=== PATIENT | male | born 1950 | race Caucasian/White ===

== ENCOUNTER 2016-09-27 14:02 | Emergency (ER) | payer MEDICARE, MEDICAID ==
[2016-09-27] MEDS ORDERED: NS 0.9% 1000 ML* 1,000 ML IV ONE (14:51)
--- NOTE | 2016-09-27 15:01 | RAD ---
Indication: Weakness. Single frontal view of the chest performed at 1440 hours was reviewed. No prior study is available for comparison. No mediastinal shift is noted. Heart is of normal size and configuration. Lung burton appear clear. IMPRESSION: NO ACTIVE CARDIOPULMONARY DISEASE IS NOTED.
[2016-09-27 15:11] LABS: Hematocrit 43 % (42-52); Hemoglobin 14.7 g/dl (14.0-18.0); Mean Corpuscular HGB Conc 34 g/dl (31-36); Mean Corpuscular Hemoglobin 31 pg (27-31); Mean Corpuscular Volume 89 fL (80-94); Mean Platelet Volume 7 um3 (7.4-10.4); Red Blood Count 4.83 10^6/ul (4.0-5.4); Red Cell Distribution Width 13 % (10.5-15); White Blood Count 6.1 10^3/ul (3.5-10.8)
[2016-09-27 15:24] LABS: Potassium 4.2 mmol/L (3.5-5.0)
[2016-09-27 15:25] LABS: BUN/Creatinine Ratio 10.8 (8-20); EGFR African American 70.6 (>60); EGFR Non-African American 54.9 (>60)
[2016-09-27 16:08] LABS: TSH (Thyroid Stimulating Horm) 1.4 mcIU/mL (0.34-5.60)
[2016-09-27 17:50] LABS: Albumin 4.1 g/dL (3.2-5.2); Calcium 9.1 mg/dL (8.6-10.3); Globulin 2.8 g/dL (2-4); Magnesium 1.8 mg/dL (1.9-2.7); Total Protein 6.9 g/dL (6.4-8.9)
[2016-09-27] MEDS ORDERED: Magnesium Oxide TAB* 400 MG PO ONE (18:02)
--- NOTE | 2016-09-27 18:04 | ED ---
Shell Orellana Edward, scribed for Gayla Ziegler MD on 09/27/16 at 1440 . Dizziness - HPI Summary HPI Summary: 66 y/o male presents to ED s/p syncopal episode earlier today. The patient was walking up a hill with a cart when the episode happened. The patient was dizzy and diaphoretic right before the episode. Patient feels much better in the ED. Denies CP. PMHx HTN. No previous NE's. FHx no HTN. - History Of Current Complaint Chief Complaint: EDDizziness Stated Complaint: DIZZINESS Time Seen by Provider: 09/27/16 14:36 Hx Obtained From: Patient Onset/Duration: Resolved Timing: Frequency Of Episodes - 1 syncopal episode Character: Dizzy - and diaphoretic Associated Signs And Symptoms: Positive: Diaphoresis, Other: - dizziness, syncope - Allergies/Home Medications Allergies/Adverse Reactions: Allergies Allergy/AdvReac Type Severity Reaction Status Date / Time No Known Allergies Allergy Verified 09/27/16 14:31 PMH/Surg Hx/FS Hx/Imm Hx Previously Healthy: No Cardiovascular History: Reports: Hx Hypertension Denies: Hx Myocardial Infarction Infectious Disease History: No Infectious Disease History: Denies: Traveled Outside the [place] in Last 30 Days - Family History Known Family History: Negative: Hypertension - Social History Occupation: Disabled Lives: Alone Alcohol Use: None Hx Substance Use: No Substance Use Type: Reports: None Hx Tobacco Use: Yes Smoking Status (MU): Former Smoker Review of Systems Positive: Skin Diaphoresis Eyes: Negative ENT: Negative Cardiovascular: Negative Negative: Chest Pain Respiratory: Negative Gastrointestinal: Negative Genitourinary: Negative Musculoskeletal: Negative Skin: Negative Neurological: Other - Dizziness Positive: Syncope - 1x Psychological: Normal All Other Systems Reviewed And Are Negative: Yes Physical Exam Triage Information Reviewed: Yes Vital Signs On Initial Exam: Initial Vitals Temp Pulse Resp BP Pulse Ox 98 F 67 14 122/67 99 09/27/16 14:22 09/27/16 14:22 09/27/16 14:22 09/27/16 14:22 09/27/16 14:22 Vital Signs Reviewed: Yes Appearance: Positive: Well-Appearing, No Pain Distress Skin: Positive: Warm, Skin Color Reflects Adequate Perfusion, Dry Eyes: Positive: EOMI, PEYTON ENT: Positive: Pharynx normal, TMs normal Neck: Positive: Supple, Nontender Respiratory/Lung Sounds: Positive: Clear to Auscultation, Breath Sounds Present. Negative: Rales, Rhonchi, Wheezes Cardiovascular: Positive: RRR, Other - No gallop. Negative: Murmur, Rub Abdomen Description: Positive: Nontender, Soft, Other: - No rebound. Negative: Distended, Guarding Bowel Sounds: Positive: Present Musculoskeletal: Positive: Strength/ROM Intact. Negative: Edema Left, Edema Right Neurological: Positive: Sensory/Motor Intact, Alert, Oriented to Person Place, Time, CN Intact II-III Psychiatric: Positive: Affect/Mood Appropriate - [place] Coma Scale Coma Scale Total: 15 Diagnostics - Vital Signs Vital Signs Temp Pulse Resp BP Pulse Ox 09/27/16 14:22 98 F 67 14 122/67 99 - Laboratory Lab Results: Lab Results 09/27/16 09/27/16 Range/Units 15:04 15:04 WBC 6.1 (3.5-10.8) 10^3/ul RBC 4.83 (4.0-5.4) 10^6/ul Hgb 14.7 (14.0-18.0) g/dl Hct 43 (42-52) % MCV 89 (80-94) fL MCH 31 (27-31) pg MCHC 34 (31-36) g/dl RDW 13 (10.5-15) % Plt Count 170 (150-450) 10^3/ul MPV 7 L (7.4-10.4) um3 Neut % (Auto) 74.7 (38-83) % Lymph % (Auto) 16.6 L (25-47) % Lea % (Auto) 6.2 (1-9) % Eos % (Auto) 2.1 (0-6) % Baso % (Auto) 0.4 (0-2) % Absolute Neuts (auto) 4.6 (1.5-7.7) 10^3/ul Absolute Lymphs (auto) 1.0 (1.0-4.8) 10^3/ul Absolute Monos (auto) 0.4 (0-0.8) 10^3/ul Absolute Eos (auto) 0.1 (0-0.6) 10^3/ul Absolute Basos (auto) 0 (0-0.2) 10^3/ul Absolute Nucleated RBC 0 10^3/ul Nucleated RBC % 0 Sodium 142 (133-145) mmol/L Potassium 4.2 (3.5-5.0) mmol/L Chloride 104 (101-111) mmol/L Carbon Dioxide 28 (22-32) mmol/L Anion Gap 10 (2-11) mmol/L BUN 14 (6-24) mg/dL Creatinine 1.30 H (0.67-1.17) mg/dL Est GFR ( Amer) 70.6 (>60) Est GFR (Non-Af Amer) 54.9 (>60) BUN/Creatinine Ratio 10.8 (8-20) Glucose 97 (70-100) mg/dL Calcium 9.1 (8.6-10.3) mg/dL Magnesium 1.8 L (1.9-2.7) mg/dL Total Bilirubin 1.00 (0.2-1.0) mg/dL AST 22 (13-39) U/L ALT 20 (7-52) U/L Alkaline Phosphatase 46 (34-104) U/L Troponin I 0.00 (<0.04) ng/mL Total Protein 6.9 (6.4-8.9) g/dL Albumin 4.1 (3.2-5.2) g/dL Globulin 2.8 (2-4) g/dL Albumin/Globulin Ratio 1.5 (1-3) TSH 1.40 (0.34-5.60) mcIU/mL Result Diagrams: 09/27/16 15:04 09/27/16 15:04 Lab Statement: Any lab studies that have been ordered have been reviewed, and results considered in the medical decision making process. - Radiology CXR Xray Interpretation: No Acute Changes - NO ACTIVE CARDIOPULMONARY DISEASE IS NOTED. Radiology Interpretation Completed By: Radiologist - EKG 1 Cardiac Rate: NL EKG Rhythm: Sinus Rhythm - @ [address] Segment: Normal EKG Interpretation: 14:57 Dizzy Course/Dx - Course Course Of Treatment: 66 yo male with syncope after walking in the heat feels much better here no head injury, labs essentially normal ok to go home - Diagnoses Provider Diagnoses: Syncope Discharge - Discharge Plan Condition: Stable Disposition: HOME The documentation as recorded by the Shell tavares Edward accurately reflects the service I personally performed and the decisions made by , Gayla Ziegler MD.
[2016-09-27 18:16] VITALS: BP 142/73
== END 2016-09-27 18:42 | disposition home or self-care (01) ==
LOC: ED 14:02
DX: R55 Syncope and collapse (principal); R42 Dizziness and giddiness; Z87.891 Personal history of nicotine dependence
CPT/HCPCS: 36415; 71010; 80053; 83605; 83735; 84443; 84484; 85025; 93005; 99282